=== PATIENT | male | born 1975 | race Caucasian/White ===

== ENCOUNTER → 2021-11-14 10:41 | Outpatient (BNVA) | payer MEDICAID, SELFPAY | PROVIDERS: PCP Hospitalist | DX: R35.0 Frequency of micturition (principal) | CPT/HCPCS: 51798; 99202 ==

== ENCOUNTER → 2022-02-07 08:41 | Outpatient (BNVA) | payer MEDICAID, SELFPAY | PROVIDERS: PCP Hospitalist | DX: R35.0 Frequency of micturition (principal); Z79.899 Other long term (current) drug therapy | CPT/HCPCS: 51798; 99212 ==

== ENCOUNTER → 2022-08-10 09:14 | Outpatient (BNVA) | payer MEDICARE, MEDICAID, SELFPAY | PROVIDERS: PCP Hospitalist; Visit Provider Nurse Practitioner Family | DX: N40.0 Benign prostatic hyperplasia without lower urinary tract symptoms (principal); R35.0 Frequency of micturition | CPT/HCPCS: 51798; 99212 ==

== ENCOUNTER → 2022-10-13 10:13 | Outpatient (BNVA) | payer MEDICARE, MEDICAID, SELFPAY | PROVIDERS: PCP Hospitalist; Visit Provider Nurse Practitioner Family | DX: N40.1 Benign prostatic hyperplasia with lower urinary tract symptoms (principal); R35.0 Frequency of micturition; R35.1 Nocturia; Z79.899 Other long term (current) drug therapy | CPT/HCPCS: 51798; 99212 ==

== ENCOUNTER 2022-11-01 12:13 | Outpatient (REF) | payer MEDICARE, MEDICAID, SELFPAY ==
--- NOTE | ~2022-11-01 | US_ITS ---
EXAMINATION: US RETROPERITONEAL LIMITED (RENAL ONLY) CLINICAL INFORMATION: Benign prostatic hyperplasia. COMPARISON: None available. TECHNIQUE: Real-time imaging of the kidneys. FINDINGS: RIGHT KIDNEY: 10.2 x 5.1 x 5.2 cm (SAG x AP x TRV). The kidney is normal in size and contour. Renal cortical thickness is normal. No calculi or focal parenchymal lesions. No hydronephrosis. There is mild caliectasis. LEFT KIDNEY: 9.4 x 4.2 x 4.1 cm (SAG x AP x TRV). The kidney is normal in size and contour. Renal cortical thickness is normal. No calculi or focal parenchymal lesions. No hydronephrosis. There is mild caliectasis. US/US renal BI IMPRESSION: Mild bilateral caliectasis. No echogenic stones or hydronephrosis seen.
== END 2022-11-01 12:14 | disposition home or self-care (01) ==
LOC: HO.US 12:13
PROVIDERS: PCP Hospitalist; Visit Provider Nurse Practitioner Family
DX: N40.0 Benign prostatic hyperplasia without lower urinary tract symptoms (principal); R35.0 Frequency of micturition
CPT/HCPCS: 76775

== ENCOUNTER 2022-11-20 14:21 | Outpatient (REF) | payer MEDICARE, MEDICAID, SELFPAY ==
--- NOTE | ~2022-11-20 | US_ITS ---
EXAMINATION: US PELVIS LIMITED (BLADDER) CLINICAL INFORMATION: Poor urinary stream. COMPARISON: Ultrasound retroperitoneal limited (renal only) 11/01/2022. TECHNIQUE: Real-time imaging of the bladder. FINDINGS: The bladder is normally distended. Bilateral ureteral jets are demonstrated. There is mild prominence of the left ureteral meatus. Prevoid bladder volume is 221 mL. Postvoid bladder volume is 30.7 mL. The prostate volume is 19.7 mL. US/US bladder IMPRESSION: 1. Prominent post void bladder residual of 34 mL. 2. Prostate gland is normal in size. 3. Mild prominence of the left ureteral meatus, nonspecific but possibly a tiny ureterocele. Bilateral ureteral jets noted.
== END 2022-11-20 14:22 | disposition home or self-care (01) ==
LOC: HO.US 14:21
PROVIDERS: PCP Hospitalist; Visit Provider Nurse Practitioner Family
DX: R39.12 Poor urinary stream (principal)
CPT/HCPCS: 76857

== ENCOUNTER → 2022-11-23 10:16 | Outpatient (BNVA) | payer MEDICARE, MEDICAID, SELFPAY | PROVIDERS: PCP Hospitalist; Visit Provider Nurse Practitioner Family | DX: R35.1 Nocturia (principal); R35.0 Frequency of micturition | CPT/HCPCS: 51798; 99212 ==

== ENCOUNTER 2023-05-24 13:45 | Outpatient (AMB) | payer MEDICARE, MEDICAID, SELFPAY ==
--- NOTE | 2023-05-24 13:47 | MHC.OFFVIS ---
Intake Intake Visit Reasons: 6m/PVR Intake Note: Patient is present for follow up BPH/frequency Urology Medications: vesicare, myrbetriq Blood Thinner: none PVR: 0ml's [employer] Superintendent Required: No Accompanied by: Self / Same As Patient Allergies emtricitabine [From Truvada] Adverse Reaction (Verified 05/24/23 14:21) Unknown tenofovir [From Truvada] Adverse Reaction (Verified 05/24/23 14:21) Unknown Medication List - Last Reconciled 05/24/23 by CECY Gray atorvastatin 20 mg PO DAILY divalproex ER 250 mg PO DAILY divalproex ER 500 mg PO DAILY dolutegravir-lamivudine 50-300 mg (Dovato) 1 tab PO DAILY lactulose mL PO loratadine (Allergy Relief (loratadine)) 10 mg PO DAILY melatonin 6 mg PO DAILY metronidazole 1% 1 appl topical DAILY mirabegron ER (Myrbetriq) 25 mg PO DAILY 90 days mirtazapine 15 mg PO BEDTIME solifenacin (Vesicare) 5 mg PO DAILY 30 days solifenacin 10 mg PO DAILY trazodone 150 mg PO BEDTIME HPI HPI Comments History of Present Illness Details Andrew is a pleasant 47-year-old male patient of Dr. Martin who resides at [facility]. He has a past medical history of hypertension, encephalopathy, cocaine abuse, cannabis use, alcohol abuse, hyperlipidemia, anemia, HIV, depression, chronic kidney disease stage 3, present myopia, vitamin-D deficiency, and bipolar. He presents to the office today for follow-up regarding his urinary frequency. When asked he reports to be doing and feeling well. He reports compliance with Myrbetriq 25 mg daily as well as 5 mg of VESIcare daily. He reports feeling urinary symptoms have improved however does feel they could be somewhat better. Previous workup has included a renal/bladder ultrasound nothing mild bilateral caliectasis. No stones or hydronephrosis noted. The bladder is normally distended. Bilateral ureteral jets are demonstrated. There is mild prominence of the left ureteral meatus. Prevoid bladder volume is approximately 220 mL. Postvoid bladder volume is approximately 30 mL. The prostate volume is approximately 20 mLs. PSAs are as follows: 11/28--1.0 04/30--1.1 He otherwise offers no issues or concerns at this time. With current med management he denies urinary frequency, nocturia, dysuria, incontinence, hematuria, flank pain, fever, and or chills. He mentions having AIDS approximately 16 years ago and being hospitalized for weeks and hospital in [facility]. He discusses being on a medication for his HIV that caused him to have renal failure Truvada. In office urinalysis results reviewed with the patient today. PVR 0mL. Discussed possible near future in office cystoscopy for further assessment evaluation if symptoms return and or worsen. He reports smoking approximately 4-5 cigarettes per day. Discussed decreasing and avoiding bladder irritants such as nicotine, caffeine, and or chocolate. He discusses his upcoming trip back to [facility] where his mom lives for the holidays and is looking forward to being with his family. He otherwise denies any other issues or concerns at this time. [facility] Medical History Pruritus, unspecified Essential (primary) hypertension Encephalopathy, unspecified Cocaine abuse, uncomplicated Cannabis abuse, uncomplicated Alcohol abuse, uncomplicated Hyperlipidemia, unspecified Anemia, unspecified Human immunodeficiency virus [HIV] disease Other symptoms and signs involving cognitive functions and awareness Disorder of urea cycle metabolism, unspecified Unspecified astigmatism, bilateral Major depressive disorder, recurrent, moderate Chronic kidney disease, stage 3 unspecified Presbyopia Other disorders of vitreous body Personal history of COVID-19 Other polyuria Vitamin D deficiency, unspecified Dementia in other diseases classified elsewhere, unspecified severity, with other behavioral disturbance Bipolar disorder, unspecified Urinary frequency Review of Systems Const Reports as per HPI Eyes Reports as per HPI ENT Reports no additional complaints Card Reports as per HPI Resp Reports no additional complaints GI Reports as per HPI Reports as per HPI Musc Reports no additional complaints Neuro Reports as per HPI Psych Reports as per HPI Physical Exam Const General: cooperative, comfortable, no acute distress, well developed, alert and awake Orientation/consciousness: patient oriented x3 Limitations: no limitations HEENT Head: Yes normal to inspection, Yes normocephalic and Yes atraumatic Ears: hearing grossly normal bilaterally Eyes General: appearance normal, both eyes and all related structures Neck Neck: Yes normal visual inspection Chest Chest palpation & inspection: normal inspection of the chest Resp Effort & Inspection: normal respiratory effort and able to speak in complete sentences Cardio Rate: regular rate GI Inspection: Yes normal to inspection General: Yes no CVA tenderness Back/Spine/Pelvis Back: no CVA tenderness Skin General skin exam: no rashes or lesions noted Neuro General: patient oriented x3 Extrem General: Yes normal to inspection Psych Appearance: grossly normal and well kempt Mental Status: mental status grossly normal Speech and movement: Normal speech and movement present and Clear speech present Affect: normal affect Attitude: cooperative Thought process: Normal thought process present Thought content: Normal thought content present Insight: Fair insight present (Psych) Judgement: Fair judgement present (Psych) Office Procedures Post Void Residual Post Residual Void Post Void Residual (PVR): 0 [id number] Void Residual by ultrasound Results AMB Urinalysis, Automated UA Leukoctes 0 Surya/uL Last Edit by [employer] on 05/24/23 14:24 UA Nitrite Negative Last Edit by [employer] on 05/24/23 14:24 UA Urobilinogen 0.2 mg/dL Last Edit by [employer] on 05/24/23 14:24 UA Protein 15 mg/dL Last Edit by [employer] on 05/24/23 14:24 UA pH 6.5 Last Edit by [employer] on 05/24/23 14:24 UA Blood 0 Kev/uL Last Edit by [employer] on 05/24/23 14:24 UA Specific [place] 1.020 Last Edit by [employer] on 05/24/23 14:24 UA Ketone Negative Last Edit by [employer] on 05/24/23 14:24 UA Bilirubin 0 mg/dL Last Edit by [employer] on 05/24/23 14:24 UA Glucose 0 mg/dL Last Edit by [employer] on 05/24/23 14:24 Results Reviewed Results Reviewed: Laboratory Last Values Urine pH (Auto) 6.5 05/24/23 13:49 Specific [place] (Auto) 1.020 05/24/23 13:49 Urine Protein (Auto) 15 mg/dL 05/24/23 13:49 Glucose (UA)(Auto) 0 mg/dL 05/24/23 13:49 Urine Ketones (Auto) Negative 05/24/23 13:49 Urine Blood (Auto) 0 Kev/uL 05/24/23 13:49 Urine Nitrite (Auto) Negative 05/24/23 13:49 Urine Bilirubin (Auto) 0 mg/dL 05/24/23 13:49 Urine Urobilinogen (Auto) 0.2 mg/dL 05/24/23 13:49 Leukocyte Esterase (Auto) 0 Surya/uL 05/24/23 13:49 Assessment & Plan Assessment & Plan (1) Nocturia: Code(s): R35.1 - Nocturia (2) BPH (benign prostatic hyperplasia): Code(s): N40.0 - Benign prostatic hyperplasia without lower urinary tract symptoms (3) Urinary frequency: Code(s): R35.0 - Frequency of micturition Plan In office urinalysis results reviewed with the patient today is a good as noted above. PVR 0 mL. Continue Myrbetriq and VESIcare; Will increase Vesicare to 10mg daily. Patient denies any urological issues or concerns at this time. Discussed recent PSA results with the patient; as noted above. Discussed, educated, and encouraged to continue drinking adequate amount of water daily. Discussed importance of limiting/quitting smoking for improvement in lower urinary tract symptoms as well as overall health and well-being. Discussed limiting bladder triggers/irritants for improvement in urinary symptoms as well as overall health and well-being. Follow-up in one year with PVR; or sooner with any issues, concerns, and or questions. Orders: Orders AMB Post Void Residual by ultrasound 05/24/23 R35.1 - Nocturia AMB Urinalysis Automated 05/24/23 Z13.9 - Encounter for screening, unspecified Medications: New solifenacin 10 mg PO DAILY 90 days 90 tabs 3RF Discontinued solifenacin (Vesicare) Discontinued Reason: Doctor's Order 5 mg PO DAILY 30 days 30 tabs 1RF Patient Instructions: The patient had an opportunity to ask questions regarding the treatment plan. All questions were answered. Physical exam, labs, and imaging were discussed and reviewed in detail. As well as risks, benefits, and discussion of treatment choices. No major barriers to understanding were identified. The patient expressed understanding and agreement with the above treatment plan. The patient was made aware they should contact our office by phone for worsening of their current condition, the appearance of new symptoms, or with any questions or concerns. Compliance is encouraged with any medications and follow up testing that is ordered. It is a privilege to be allowed the opportunity to participate in? your urological care.? Again, if you have any questions or concerns If you have any questions or concerns please do not hesitate to contact me. The office is [phone]. This note is constructed using voice recognition software. While every effort has been made to ensure accuracy ship engineer errors may have been included. Yours sincerely, SHERRY Gray-TIMBO Coding Level of Care Code Est Pt Level 3 (30825) Diagnoses Nocturia R35.1 BPH (benign prostatic hyperplasia) N40.0 Urinary frequency R35.0 CPT Codes Post Residual Void - PVR CPT Code: 65922-[place] Void Residual by ultrasound ([id number])
== END 2023-05-24 14:44 | disposition home or self-care (01) ==
PROVIDERS: Visit Provider Nurse Practitioner Family
DX: R35.1 Nocturia (principal); N40.0 Benign prostatic hyperplasia without lower urinary tract symptoms; R35.0 Frequency of micturition
CPT/HCPCS: 99213

== ENCOUNTER → 2023-05-24 13:45 | Outpatient (BNVA) | payer MEDICARE, MEDICAID, SELFPAY | PROVIDERS: Visit Provider Nurse Practitioner Family | DX: N40.1 Benign prostatic hyperplasia with lower urinary tract symptoms (principal); R35.1 Nocturia; R35.0 Frequency of micturition | CPT/HCPCS: 51798; 81003; 99212 ==

== ENCOUNTER 2024-03-17 08:24 | Outpatient (REF) | payer MEDICARE, MEDICAID, SELFPAY | END 2024-03-17 08:25 | disposition home or self-care (01) | LOC: HO.HOSX 08:24 | DX: Z13.89 Encounter for screening for other disorder (principal) ==

== ENCOUNTER 2024-03-31 13:00 | Outpatient (REF) | payer MEDICARE, MEDICAID, SELFPAY ==
--- NOTE | ~2024-03-31 | XR_ITS ---
EXAMINATION: XR HIP, LEFT CLINICAL INFORMATION: M25.552 - Pain in left hip COMPARISON: None available. TECHNIQUE: Two views of the left hip. FINDINGS: Submitted for interpretation on June 09, 2024. No acute cortical disruption or malalignment, left hip. Bony pelvis is intact. Spina bifida occulta S1, congenital. No lytic or blastic lesions. Right hip appears intact. XR/XR hip LT min 2V IMPRESSION: No acute fracture or dislocation, left hip. Electronically signed by: Melvin Rubio MD 06/09/2024 09:40 AM JEN
== END 2024-03-31 13:01 | disposition home or self-care (01) ==
LOC: HO.HOSX 13:00
PROVIDERS: PCP Hospitalist
DX: M25.552 Pain in left hip (principal); M76.32 Iliotibial band syndrome, left leg
CPT/HCPCS: 73502; 99202

== ENCOUNTER → 2024-03-31 13:07 | Outpatient (BNV) | payer MEDICARE, MEDICAID, SELFPAY | PROVIDERS: PCP Hospitalist; Visit Provider Radiology Diagnostic Radiology | DX: M25.552 Pain in left hip (principal) | CPT/HCPCS: 73502 ==

== ENCOUNTER 2024-03-31 13:59 | Outpatient (AMB) | payer MEDICARE, MEDICAID, SELFPAY ==
--- NOTE | 2024-03-31 14:53 | A.OFFVIS_ITS ---
Vital Signs 03/31/24 14:56 Weight 120 lb Intake Visit Reasons: HEAD OF HOUSEKEEPING-OA left hip Intake Note: Andrew is a 48 year old male who presents today as a new patient for his left hip OA. Patient reports he broke his femur bone in 3rd grade and since then he has been having pain. He expresses a 10 out of 10 pain in his left hip causing him to be unable to sleep. Prolonged standing worsens his symptoms. Tylenol does not provide any relief, he has stage 3 kidney failure so he is unable to take ibuprofen. Allergies emtricitabine [From Truvada] Adverse Reaction (Verified 03/31/24 15:00) Unknown tenofovir [From Truvada] Adverse Reaction (Verified 03/31/24 15:00) Unknown HPI HPI HEAD OF HOUSEKEEPING-OA left hip: Details: Patient is a 48-year-old male who presents for evaluation of left hip pain, ongoing for an unknown period of time. The patient reports that in the 3rd grade, his uncle broke his femur, and states that since then he has been experiencing some discomfort in his left leg. The patient reports that he was told that his left femur was ?loaded with arthritis?, and that he is curious about steroid injections. Patient reports that this pain is primarily on the lateral aspect of the left hip, and radiates down the leg to the lateral knee. Patient reports that this pain worsens at night, and that he is unable to sleep. Patient denies any numbness or tingling in the left lower extremity. No other acute complaints or concerns at this time. [facility] Medical History Pruritus, unspecified Essential (primary) hypertension Encephalopathy, unspecified Cocaine abuse, uncomplicated Cannabis abuse, uncomplicated Alcohol abuse, uncomplicated Hyperlipidemia, unspecified Anemia, unspecified Human immunodeficiency virus [HIV] disease Other symptoms and signs involving cognitive functions and awareness Disorder of urea cycle metabolism, unspecified Unspecified astigmatism, bilateral Major depressive disorder, recurrent, moderate Chronic kidney disease, stage 3 unspecified Presbyopia Other disorders of vitreous body Personal history of COVID-19 Other polyuria Vitamin D deficiency, unspecified Dementia in other diseases classified elsewhere, unspecified severity, with other behavioral disturbance Bipolar disorder, unspecified Urinary frequency Social History Alcohol intake: former Comment: 20 years ago Patient Tobacco Use Status: Current everyday Tobacco user Tobacco use type: Cigarette Cigarettes Per Day: 4 service: No Review of Systems Const All systems reviewed & are unremarkable except as noted in HPI and below Physical Exam Extrem Other: On inspection, there is no visible deformity of the patient's left hip No edema, erythema, ecchymosis noted No lacerations, abrasions, open areas noted No evidence of infection Patient reports no tenderness to palpation about the lateral aspect of the left hip Patient reports no tenderness to palpation of the lateral aspect of the left femur Patient is able to forward flex the left hip to approximately 110 degrees without difficulty Positive Kevin's test on the left Distal sensation intact Capillary refill brisk Results Reviewed Results Reviewed: X-rays obtained in the office today and independently reviewed by me, Palomo Buckley PA-C, demonstrate no fracture or acute bony abnormality of the left hip. There is no evidence of arthritis of the left hip. Assessment & Plan Assessment & Plan (1) Iliotibial band syndrome of left side: Code(s): M76.32 - Iliotibial band syndrome, left leg Category: Medical Plan 1. Iliotibial band syndrome of the left side Patient is educated about this condition Patient is educated about the typical recovery course Patient is informed that his symptoms are not consistent with arthritis of the left hip, as his symptoms are located primarily in the lateral aspect of the left hip and moving down to the lateral knee Patient is informed that he likely has IT band syndrome, which is a tendinitis of the lateral left leg Patient is also informed that arthritis can only effect joints, and does not affect the entirety of bones. Patient is given a course of physical therapy to complete at his home at [facility] Of note, the patient accepts the order, but when he uses the bathroom he tears up the paper and throws it in the garbage The patient is aid asks for another order for physical therapy, which is provided Patient will follow-up as needed with any acute concerns Orders: Orders XR hip LT min 2V 03/31/24 M25.552 - Pain in left hip XR pelvis 1-2V 03/31/24 M25.559 - Pain in unspecified hip PT Evaluation and Treatment 03/31/24 M76.32 - Iliotibial band syndrome, left leg Coding Level of Care Code New Pt Level 3 (03629) Diagnoses Iliotibial band syndrome of left side M76.32
== END 2024-03-31 15:39 | disposition home or self-care (01) ==
PROVIDERS: PCP Hospitalist
DX: M76.32 Iliotibial band syndrome, left leg (principal)
CPT/HCPCS: 99203

== ENCOUNTER 2024-06-26 13:05 | Outpatient (AMB) | payer MEDICARE, MEDICAID, SELFPAY ==
--- OUTSIDE RECORDS SUMMARY | 2024-06-26 13:08 | XMS_ITS | Data Portability ---
Author Organization HAYLEE STRICKLAND MD [facility], Main Office Address [address] [place] [address] Assessment Encounter Date Assessment Date Assessment LastModified by Organization Details LastModified Time 05/23/2023 05/23/2023 telemedicine visit. 15 min. Charley. [facility] [employer]. Audio/phone [email or web address] Not available 05/23/2023 10:07:41 08/24/2023 08/24/2023 telemedicine visit.16 min. nursing w. [facility]. [employer]. Audio/phone [email or web address] Not available 08/24/2023 09:48:58 11/22/2023 11/22/2023 telemedicine visit.17 min. nursing w. [facility]. [employer] platform. Audio/phone. [email or web address] Not available 11/22/2023 09:13:20 02/22/2024 02/22/2024 telemedicine visit.15 min. nursing w. [facility]. [employer]. Audio/phone. Makeda nurse [email or web address] Not available 02/22/2024 10:11:23 Plan of Treatment Reminders Order Date Submit Date Provider Last Modified By Organization Details Last Modified Time Details Appointments TH B20 F/U 2024 09:20A M Steven Flaherty MD Not available Not available Not available Lab CBC w/ diff 2023 024 [email or web address] Not available 08/31/2023 16:20:25 electroly ten panel, blood 2023 024 [email or web address] Not available 08/31/2023 16:20:25 ALT (alanine aminotran sferase), serum or plasma 2023 024 [email or web address] Not available 08/31/2023 16:20:25 AST/SGOT (aspartat e aminotran sferase), serum or plasma 2023 024 [email or web address] Not available 08/31/2023 16:20:25 CT + NG DNA, PCR, unspecifi ed specimen 2023 024 [email or web address] Not available 08/31/2023 16:20:25 creatinin e w/ estimated GFR (eGFR), serum or plasma 2023 024 [email or web address] Not available 08/31/2023 16:20:26 hepatitis C virus Ab, serum 2023 024 Not available 08/31/2023 16:20:26 HIV-1 RNA, quantitat jv, PCR, serum or plasma 2023 024 [email or web address] Not available 08/31/2023 16:20:26 RPR (rapid plasma reagin), serum 2023 024 [email or web address] Not available 08/31/2023 16:20:26 T-cell regulator y subsets panel, blood 2023 024 [email or web address] Not available 08/31/2023 16:20:26 CBC w/ diff 2023 024 [email or web address] Not available 11/29/2023 10:40:12 electroly ten panel, blood 2023 024 [email or web address] Not available 11/29/2023 10:40:12 ALT (alanine aminotran sferase), serum or plasma 2023 024 [email or web address] Not available 11/29/2023 10:40:12 AST/SGOT (aspartat e aminotran sferase), serum or plasma 2023 024 [id number] Not available 11/29/2023 10:40:12 CT + NG DNA, PCR, unspecifi ed specimen 2023 024 [email or web address] Not available 11/29/2023 10:40:12 creatinin e w/ estimated GFR (eGFR), serum or plasma 2023 024 Not available 11/29/2023 10:40:12 hepatitis C virus Ab, serum 2023 024 [email or web address] Not available 11/29/2023 10:40:12 HIV-1 RNA, quantitat jv, PCR, serum or plasma 2023 024 [email or web address] Not available 11/29/2023 10:40:12 RPR (rapid plasma reagin), serum 2023 024 [email or web address] Not available 11/29/2023 10:40:13 T-cell regulator y subsets panel, blood 2023 024 [email or web address] Not available 11/29/2023 10:40:13 HIV-1 RNA, quantitat jv, PCR, serum or plasma 2023 024 Not available 02/29/2024 10:14:08 creatinin e w/ estimated GFR (eGFR), serum or plasma 2023 024 Not available 02/29/2024 10:14:08 Referral None recorded. Procedures None recorded. Surgeries None recorded. Imaging None recorded. Medication Orders Dovato 50 mg-300 mg tablet 2023 024 [facility], [address] [place], [place] [address]x [facility], [place], [address], 08/24/2023 21:07:29 Dovato 50 mg-300 mg tablet 2023 024 [facility], [address] [place], [place] [address]enix [facility], [place], [address], 11/22/2023 09:28:36 Dovato 50 mg-300 mg tablet 2023 024 [facility], [address] [place], [place] [address], [place], [address], 02/22/2024 13:21:32 Patient TargetsNo targets recorded. Patient InstructionsNo instructions recorded. Reason for Referral None Reported. Results Created Date Observation Date Name Description Value Unit Range Abnormal Flag Note LastModifiedBy Organization Detail LastModifiedTime Result Notes None recorded. Problems Name Problem SNOMED Code Status Onset Date Resolution Date Notes Provider Name and Address Organization Details Recorded Time Human immunodef iciency virus infection 67919521 Active 2022 Steven Flaherty MD [address] [place] [address], [phone] , [facility] STEVEN FLAHERTY MD [facility] 3 10:20:12 Chronic kidney disease 111828352 Active 2016 Chronic kidney disease; snomeddesc ription: Chronic kidney disease; Report Immunity to Registry: Yes; Not Available [facility] 4 06:59:35 Anogenita l herpesvir al infection 252824580 Active 2016 Anogenital herpesvira l infection, unspecifie d; snomeddesc ription: Genital herpes simplex; Report Immunity to Registry: Yes; Notes: HSv 1 and 2 pos serology 2016; Not Available [facility] 4 06:59:35 Genital herpes simplex 35334096 Active 2016 Genital herpes simplex; snomeddesc ription: Genital herpes simplex; Report Immunity to Registry: Yes; Notes: HSv 1 and 2 pos serology 2016; Not Available [facility] 4 06:59:36 Problem Notes None recorded. Medical Equipment None Reported. Allergies Allergen ID Allergen Name Allergen Category Reaction Reaction Severity Criticality Documentation Date Start Date Code Code System Note Provider Name and Address Organization Details Recorded Time 650 Truvada medicatio n Not available Not available Not available 08/29/20232015 56689 0 RxNorm Comme nt: adver se_ev ent_t ype: 60065 8002; Notes : renal failu re; ; Not Available [facility] 4 06:50:40 Medications Name Sig Start Date Stop Date Status Note LastModified by Organization Details LastModified Time quetiapin e 25 mg tablet TAB 25MG; Quantity : 60; Duration : 30; 0 refill(s ) 07/11 completed Duration : 30; VACCINE_ IND: no; Not Available Not Available Not Available atorvasta tin 20 mg tablet 20MG TAB; Quantity : 30; Duration : 30; 0 refill(s ) active Not Available Not Available No t Available Pain Relief (acetamin ophen) 325 mg tablet 325 mg Quantity : ; 0 refill(s ) 11/22 completed VACCINE_ IND: no; Not Available Not Available Not Available senna 8.6 mg tablet 8.6 mg Quantity : ; 0 refill(s ) 11/22 completed VACCINE_ IND: no; Not Available Not Available Not Available quetiapin e 200 mg tablet 200 mg Quantity : ; 0 refill(s ) 11/22 completed VACCINE_ IND: no; Not Available Not Available Not Available melatonin 3 mg tablet 3 mg Quantity : ; 0 refill(s ) 11/22 completed VACCINE_ IND: no; Not Available Not Available Not Available divalproe x 500 mg tablet,de layed release 500 mg Quantity : ; 0 refill(s ) 11/22 completed VACCINE_ IND: no; Not Available Not Available Not Available Fleet Enema 19 gram-7 gram/118 mL 7 g-19 g Quantity : ; 0 refill(s ) 11/22 completed VACCINE_ IND: no; Not Available Not Available Not Available PreviDent 1.1 % gel 1.1% Quantity : ; 0 refill(s ) 11/22 completed VACCINE_ IND: no; Not Available Not Available Not Available tamsulosi n 0.4 mg capsule 0.400 Quantity : 30; Duration : 30; 0 refill(s ) 11/29 completed Duration : 30; VACCINE_ IND: no; Not Available Not Available Not Available bisacodyl 10 mg rectal supposito ry 10 mg Quantity : ; 0 refill(s ) 11/22 completed VACCINE_ IND: no; Not Available Not Available Not Available trazodone 150 mg tablet 150MG TAB; Quantity : 30; Duration : 30; 0 refill(s ) active Not Available Not Available No t Available oseltamiv ir 75 mg capsule active Not Available Not Available Not Available divalproe x ER 500 mg tablet,ex tended release 24 hr 500MG ER TAB; Quantity : 30; Duration : 30; 0 refill(s ) active Not Available Not Available No t Available gabapenti n 300 mg capsule 300.000 Quantity : 90; Duration : 30; 0 refill(s ) 11/29 completed Duration : 30; VACCINE_ IND: no; Not Available Not Available Not Available mirtazapi ne 15 mg tablet 15MG TAB; Quantity : 30; Duration : 30; 0 refill(s ) active Not Available Not Available No t Available ibuprofen 600 mg tablet active Not Available Not Available Not Available divalproe x ER 250 mg tablet,ex tended release 24 hr 250MG ER TAB; Quantity : 30; Duration : 30; 0 refill(s ) active Not Available Not Available No t Available abacavir 600 mg-lamivu dine 300 mg tablet 600 mg-300 mg Quantity : ; 0 refill(s ) 11/21 completed VACCINE_ IND: no; Not Available Not Available Not Available lactulose 10 gram/15 mL oral solution 10.000 Quantity : 473; Duration : 15; 0 refill(s ) active Not Available Not Available No t Available solifenac in 5 mg tablet active Not Available Not Available Not Available solifenac in 10 mg tablet 10MG TAB; Quantity : 30; Duration : 30; 0 refill(s ) active Not Available Not Available No t Available metronida zole 1 % topical gel 1.000 Quantity : 60; Duration : 10; 0 refill(s ) active Not Available Not Available No t Available quetiapin e 50 mg tablet TAB 50MG; Quantity : 60; Duration : 30; 0 refill(s ) 08/18 completed Duration : 30; VACCINE_ IND: no; Not Available Not Available Not Available Isentress 400 mg tablet 400 mg Quantity : ; 0 refill(s ) 11/21 completed VACCINE_ IND: no; Not Available Not Available Not Available Myrbetriq 25 mg tablet,ex tended release 25MG TAB; Quantity : 14; Duration : 14; 0 refill(s ) active Not Available Not Available No t Available Dovato 50 mg-300 mg tablet TAKE 1 TABLET BY MOUTH EVERY DAY active Not Available Not Available No t Available Afluria Quad 60 mcg (15 mcg x 4)/0.5 mL intramusc ular susp. quadriva lent Quantity : ; 0 refill(s ) 02/02 completed VACCINE_ IND: yes; VACCINE_ NAME: influenz a, injectab le, quadriva lent; SU_FULL_ NAME: Steven braga; VIS_DATE : 17:16:07 .0; Not Available Not Available Not Available Vitals None Recorded Social History None recorded. Functional Status None recorded. Mental Status None recorded. Family History Nothing Reported Notes:Unknown Family History , Response Property: Yes; Medical History No medical history recorded. Past Encounters Encounter ID Performer Location Encounter Start Date Encounter Closed Date Diagnosis/Indication Diagnosis SNOMED-CT Code Diagnosis ICD10 Code [id number] Steven Flaherty MD Main Office [address] [place] [id number] 05/23/2023 09:32:27 05/23/2023 10:30:15 Human immunodeficiency virus infection 75959127 B20 [id number] Steven Flaherty MD Main Office [address] [place] [phone] 08/24/2023 09:46:14 08/24/2023 11:03:44 Human immunodeficiency virus infection 44628638 B20 [id number] Steven Flaherty MD Main Office [address] [place] [phone] 11/22/2023 09:03:22 11/22/2023 09:24:13 Human immunodeficiency virus infection 86512920 B20 [id number] Steven Flaherty MD Main Office [address] [place] [phone] 02/22/2024 10:01:15 02/22/2024 10:19:27 Human immunodeficiency virus infection 47378293 B20 Health Concerns Section Related Observation LastModified by Organization Detai ls LastModified Time None Recorded Concern Status LastModified by Organization Details LastModified Time None Recorded Advance Directives Directive None Recorded Payers Encounter Date Sequence Insurance Name Policy Number Policy Baca Covered Member ID Baca Member ID Guarantor Name 05/23/2023 [facility] Andrew Willett [id number] 08/24/2023 [facility] Andrew Shaver Tamie [id number] 11/22/2023 [facility] Andrew Shaver Tamie [id number] Notes Date Note Type Note Provider Name and Address Organization Details Recorded Time 05/23/2023 text/html F/u HIVTelemedic ine visit. in office. Pt at [facility]. [facility] Nurse.on Dovato 1 tab po qdhappy w regimencompliant; not missing dosesmed list reviewedhas not been sick since he was last seen.has lost about 4 pounds. no n/v/d. no thrush. no abd pain. no bleeding. no GERD. no metallic taste. risk management manager consulted.02/2023 NH6=557;HIV VL nondetected; egfr=62; ALT/AST wn eGFR>68; ALT/AST wnl2 HIV suppression; Cj5=2434; ALT/AST wnl; stable eGFR.04/2022 AST/ALt wnl; eGFR>68; CBC ok11/2021 Nm8=011 HIV VL nondetected; AST/ALT;eGFR>59vaccine s uptodate: COVID and flu Steven Flaherty MD [address] [place] [address], [phone], [facility] FLAHERTY MD [facility] 05/23/2023 10:20:30 08/24/2023 text/html F/u HIVon Dovato 1 tab po qdhappy w regimencompliant; not missing dosesmed list reviewedno n/v/d. no thrush. no abd pain. no bleeding. no GERD. no metallic taste. risk management manager consulted.02/2023 NM2=084;HIV VL nondetected; egfr=62; ALT/AST wn eGFR>68; ALT/AST wnl2 HIV suppression; Zp6=8992; ALT/AST wnl; stable eGFR.04/2022 AST/ALt wnl; eGFR>68; CBC ok11/2021 Rb0=238 HIV VL nondetected; AST/ALT;eGFR>59vaccine s uptodateno recent labs Steven Flaherty MD [address] [place] [address], [phone], HAYLEE FLAHERTY MD [facility] 08/24/2023 09:50:46 11/22/2023 text/html F/u HIVTelehealt h. reviewed with Makeda, who is [facility]'s nurse.on Dovato 1 tab po qdhappy w regimencompliant; not missing dosesmed list reviewedno n/v/d. no thrush. no abd pain.no new labs;no new medsweight stable02/2023 AI2=408;HIV VL nondetected; egfr=62; ALT/AST wn eGFR>68; ALT/AST wnl2 HIV suppression; Il4=9260; ALT/AST wnl; stable eGFR.04/2022 AST/ALt wnl; eGFR>68; CBC ok11/2021 Zm2=306 HIV VL nondetected; AST/ALT;eGFR>59vaccine s uptodaten hospitalizations Steven Flaherty MD [address] [place] [address], [phone], HAYLEE FLAHERTY MD [facility] 11/22/2023 09:14:25 02/22/2024 text/html F/u HIVTelehealt h. reviewed with Makeda at [facility] Oneon Dovato 1 tab po qdhappy w regimencompliant; not missing dosesmed list reviewedno n/v/d. no thrush. no abd pain.no new labs;no new meds02/2024 HIV VL =62; DH1=917;02/2023 OJ8=393;HIV VL nondetected; egfr=62; ALT/AST wnl4 eGFR>68; ALT/AST wnl2/2022 HIV suppression; Oz3=9478; ALT/AST wnl; stable eGFR.04/2022 AST/ALt wnl; eGFR>68; CBC ok11/2021 Eq1=961 HIV VL nondetected; AST/ALT;eGFR>59vaccine s uptodaten hospitalizations Steven Flaherty MD [address] [place] [address], [phone], HAYLEE FLAHERTY MD [facility] 02/22/2024 10:13:14
--- NOTE | 2024-06-26 13:34 | A.OFFVIS_ITS ---
Intake Visit Reasons: 1y/PSA Intake Note: Patient presents today for follow up on: BPH, frequency, nocturia, and psa lab results PSA: 1.0 Urology Medications: vesicare, myrbetriq Blood Thinner: none PVR: 15ml's Sliding Joint Maker Required: No Accompanied by: Self / Same As Patient Allergies emtricitabine [From Truvada] Adverse Reaction (Verified 06/26/24 14:55) Unknown tenofovir [From Truvada] Adverse Reaction (Verified 06/26/24 14:55) Unknown Medication List - Last Reconciled 06/26/24 by CECY Gray atorvastatin 20 mg PO DAILY divalproex ER 500 mg PO DAILY divalproex ER 250 mg PO DAILY dolutegravir-lamivudine 50-300 mg (Dovato) 1 tab PO DAILY lactulose mL PO loratadine (Allergy Relief (loratadine)) 10 mg PO DAILY melatonin 6 mg PO DAILY metronidazole 1% 1 appl topical DAILY mirabegron ER (Myrbetriq) 25 mg PO DAILY 90 days mirtazapine 15 mg PO BEDTIME solifenacin 10 mg PO DAILY 90 days trazodone 150 mg PO BEDTIME HPI Comments Details: Andrew is a pleasant 48-year-old male patient of Dr. Martin who resides at [facility]. He has a past medical history of hypertension, encephalopathy, cocaine abuse, cannabis use, alcohol abuse, hyperlipidemia, anemia, HIV, depression, chronic kidney disease stage 3, present myopia, vitamin-D deficiency, and bipolar. He presents to the office today for follow-up regarding his urinary frequency. When asked he reports to be doing and feeling well. He reports compliance with Myrbetriq 25 mg daily as well as 5 mg of VESIcare daily. He reports no bothersome urinary issues or concerns since his last office visit here approximately 1 year ago. Previous workup has included a renal/bladder ultrasound 10/29 nothing mild bilateral caliectasis. No stones or hydronephrosis noted. The bladder is normally distended. Bilateral ureteral jets are demonstrated. There is mild prominence of the left ureteral meatus. Prevoid bladder volume is approximately 220 mL. Postvoid bladder volume is approximately 30 mL. The prostate volume is approximately 20 mLs. PSAs are as follows: 11/28 1.0, 04/30 1.1, 05/01 1.0 He denies urinary urgency, urinary frequency, incontinence, nocturia, hematuria, dysuria, foul smelling urine, changes to urinary stream, flank pain, fever, and or chills. He is happy with his current voiding parameters. He discusses his upcoming trip back home for the holidays and his excitement regarding this trip. In office urinalysis results reviewed with the patient today. PVR 15 mL. Discussed possible near future in office cystoscopy for further assessment evaluation if symptoms return and or worsen. He reports smoking approximately 4- 5 cigarettes per day however lately has been smoking even less. We discussed decreasing and avoiding bladder irritants such as nicotine, caffeine, and or chocolate. He otherwise denies any other issues or concerns at this time. [facility] Medical History Pruritus, unspecified Essential (primary) hypertension Encephalopathy, unspecified Cocaine abuse, uncomplicated Cannabis abuse, uncomplicated Alcohol abuse, uncomplicated Hyperlipidemia, unspecified Anemia, unspecified Human immunodeficiency virus [HIV] disease Other symptoms and signs involving cognitive functions and awareness Disorder of urea cycle metabolism, unspecified Unspecified astigmatism, bilateral Major depressive disorder, recurrent, moderate Chronic kidney disease, stage 3 unspecified Presbyopia Other disorders of vitreous body Personal history of COVID-19 Other polyuria Vitamin D deficiency, unspecified Dementia in other diseases classified elsewhere, unspecified severity, with other behavioral disturbance Bipolar disorder, unspecified Urinary frequency Social History Alcohol intake: former Comment: 20 years ago Patient Tobacco Use Status: Current everyday Tobacco user Tobacco use type: Cigarette Cigarettes Per Day: 4 service: No Review of Systems Const Reports as per HPI Eyes Reports as per HPI ENT Reports no additional complaints Card Reports as per HPI Resp Reports no additional complaints GI Reports as per HPI Reports as per HPI Musc Reports no additional complaints Neuro Reports as per HPI Psych Reports as per HPI Physical Exam Const General: cooperative, comfortable, no acute distress, well developed, alert and awake Nutritional Appearance: thin Orientation/consciousness: patient oriented x3 Limitations: no limitations HEENT Head: Yes normal to inspection, Yes normocephalic and Yes atraumatic Ears: hearing grossly normal bilaterally Eyes General: appearance normal, both eyes and all related structures Neck Neck: Yes normal visual inspection Chest Chest palpation & inspection: normal inspection of the chest Resp Effort & Inspection: normal respiratory effort and able to speak in complete sentences Cardio Rate: regular rate GI Inspection: Yes normal to inspection General: Yes no CVA tenderness Back/Spine/Pelvis Back: no CVA tenderness Skin General skin exam: no rashes or lesions noted Neuro General: patient oriented x3 Extrem General: Yes normal to inspection Psych Appearance: grossly normal and well kempt Mental Status: mental status grossly normal Speech and movement: Normal speech and movement present and Clear speech present Affect: normal affect Attitude: cooperative Thought process: Normal thought process present Thought content: Normal thought content present Insight: Fair insight present (Psych) Judgement: Fair judgement present (Psych) Office Procedures Post Void Residual Post Residual Void Post Void Residual (PVR): 15 26387-Tywr Void Residual by ultrasound Results AMB Urinalysis, Automated UA Leukoctes 0 Surya/uL Last Edit by [employer] on 06/26/24 14:48 UA Nitrite Last Edit by [employer] on 06/26/24 14:48 UA Urobilinogen 0.2 mg/dL Last Edit by [employer] on 06/26/24 14:48 UA Protein 30 mg/dL Last Edit by [employer] on 06/26/24 14:48 UA pH 6.0 Last Edit by [employer] on 06/26/24 14:48 UA Blood 0 Kev/uL Last Edit by [employer] on 06/26/24 14:48 UA Specific Vanderbilt 1.020 Last Edit by [employer] on 06/26/24 14:48 UA Ketone Last Edit by [employer] on 06/26/24 14:48 UA Bilirubin 0 mg/dL Last Edit by [employer] on 06/26/24 14:48 UA Glucose 0 mg/dL Last Edit by [employer] on 06/26/24 14:48 Results Reviewed Results Reviewed: Laboratory Last Values Urine pH (Auto) 6.0 06/26/24 14:13 Specific Vanderbilt (Auto) 1.020 06/26/24 14:13 Urine Protein (Auto) 30 mg/dL 06/26/24 14:13 Glucose (UA)(Auto) 0 mg/dL 06/26/24 14:13 Urine Blood (Auto) 0 Kev/uL 06/26/24 14:13 Urine Bilirubin (Auto) 0 mg/dL 06/26/24 14:13 Urine Urobilinogen (Auto) 0.2 mg/dL 06/26/24 14:13 Leukocyte Esterase (Auto) 0 Surya/uL 06/26/24 14:13 Assessment & Plan Assessment & Plan (1) Nocturia: Code(s): R35.1 - Nocturia Category: Medical (2) BPH (benign prostatic hyperplasia): Code(s): N40.0 - Benign prostatic hyperplasia without lower urinary tract symptoms Category: Medical (3) Urinary frequency: Code(s): R35.0 - Frequency of micturition Category: Medical Plan In office urinalysis results reviewed with the patient today; as noted above. PVR 15 mL. Patient currently denies any bothersome urinary issues or concerns. He reports be happy with current voiding parameters. Recent PSA results reviewed with the patient today; as noted above. Continue VESIcare and Myrbetriq as prescribed. Discussed bladder triggers/irritants. Will obtain PSA in 1 year. Follow-up in 1 year with PSA and PVR; or sooner with any issues, concerns, and or questions. Orders: Orders AMB Post Void Residual by ultrasound 06/26/24 R35.1 - Nocturia Prostate Specific Antigen 06/18/24 Z12.5 - Encounter for screening for malignant neoplasm of prostate AMB Urinalysis Automated 06/26/24 Z13.9 - Encounter for screening, unspecified Prostate Specific Antigen 1 Year N40.0 - Benign prostatic hyperplasia without lower urinary tract symptoms Patient Instructions: The patient had an opportunity to ask questions regarding the treatment plan. All questions were answered. Physical exam, labs, and imaging were discussed and reviewed in detail. As well as risks, benefits, and discussion of treatment cho ices. No major barriers to understanding were identified. The patient expressed understanding and agreement with the above treatment plan. The patient was made aware they should contact our office by phone for worsening of their current condition, the appearance of new symptoms, or with any questions or concerns. Compliance is encouraged with any medications and follow up testing that is ordered. It is a privilege to be allowed the opportunity to participate in? your urological care.? Again, if you have any questions or concerns If you have any questions or concerns please do not hesitate to contact me. The office is [phone]. This note is constructed using voice recognition software. While every effort has been made to ensure accuracy background check coordinator errors may have been included. Yours sincerely, CECY Gray Coding Level of Care Code Est Pt Level 3 (84034) Complex EM visit Add On G2211 Diagnoses Nocturia R35.1 BPH (benign prostatic hyperplasia) N40.0 Urinary frequency R35.0 CPT Codes Post Residual Void - PVR CPT Code: 65241-Jita Void Residual by ultrasound ([id number])
== END 2024-06-26 14:25 | disposition home or self-care (01) ==
PROVIDERS: PCP Hospitalist; Visit Provider Nurse Practitioner Family
DX: R35.1 Nocturia (principal); N40.0 Benign prostatic hyperplasia without lower urinary tract symptoms; R35.0 Frequency of micturition
CPT/HCPCS: 99213; G2211

== ENCOUNTER → 2024-06-26 13:05 | Outpatient (BNVA) | payer MEDICARE, MEDICAID, SELFPAY | PROVIDERS: PCP Hospitalist; Visit Provider Nurse Practitioner Family | DX: R35.0 Frequency of micturition (principal); N40.0 Benign prostatic hyperplasia without lower urinary tract symptoms; R35.1 Nocturia | CPT/HCPCS: 51798; 81003; 99212 ==